=== PATIENT | female | born 1960 | race Caucasian/White ===

== ENCOUNTER → 2020-07-15 10:46 | Outpatient (CLI) | payer OTHER, SELFPAY ==
--- NOTE | ~2020-07-15 | XR_ITS ---
XR foot RT 2V DATE: 07/15/2020 11:13 INDICATION: Right foot pain TECHNIQUE: AP and lateral views COMPARISON: None FINDINGS: Mild plantar calcaneal enthesopathy. Osteophytosis at the tibiotalar joint. Severe osteoarthritic is at the first metatarsophalangeal join t. No fracture or dislocation, periosteal reaction or bone destruction. IMPRESSION: Osteophyte is at the tibiotalar and particularly first metatarsophalangeal joints Mild plantar calcaneal enthesopathy Reviewed, dictated and finalized at location B. IMPRESSION: Osteophyte is at the tibiotalar and particularly first metatarsopha langeal joints Mild plantar calcaneal enthesopathy
--- NOTE | ~2020-07-15 | XR_ITS ---
XR ankle RT 2V DATE: 07/15/2020 11:13 INDICATION: Right ankle and foot pain TECHNIQUE: AP and lateral views COMPARISON: None FINDINGS: There is minimal plantar calcaneal enthesopathy. No fracture or dislocation of the ankle or disruption of the ankle mortise is detected. There is teresa drocalcinosis and osteoarthritis at the tibiotalar joint. No periosteal reaction or bone destruction. IMPRESSION: Slight plantar calcaneal enthesopathy Chondrocalcinosis and osteoarthritis at the tibiotalar joint Reviewed, dictated and finalized at location B.
== END ==
DX: M77.31 Calcaneal spur, right foot (principal)
CPT/HCPCS: 73600; 73620

== ENCOUNTER → 2020-09-10 11:13 | Outpatient (CLI) | payer OTHER, SELFPAY ==
--- NOTE | ~2020-09-10 | MR_ITS ---
EXAMINATION: MR ankle RT wo con DATE: 09/10/2020 12:21 INDICATION: Right ankle pain. TECHNIQUE: Magnetic resonance imaging (MRI) of the right ankle was performed without intravenous cont rast. Sequences included sagittal PD-weighted FS FSE, sagittal PD-weighted FSE, coronal PD-weighted F S FSE, coronal PD-weighted FSE, axial PD-weighted FS FSE, and axial PD-weighted FSE. COMPARISON: Right ankle radiographs 07/15/2020 FINDINGS: Medial ankle ligaments: There are chronic partial tears of the deep and superficial components of the deltoid ligament. Lateral ankle ligaments: There are changes of prior sprains of anterior talofibular ligament, calcaneofibular ligament, and an terior tibiofibular ligament characterized by thickening and increased signal intensity. There are ch anges of prior sprains of posterior talofibular ligament and posterior tibiofibular ligament with dis organized fibers. Tendons: There is a longitudinal split tear of peroneus brevis tendon. The anterior ankle tendons are normal. There is mild tenosynovitis of posterior tibial tendon and flexor hallucis longus. There are loose radha dies in the flexor hallucis longus tendon sheath. There is mild Achilles tendinopathy. Plantar fascia: Normal. Bones/other: There is severe tibiotalar joint osteoarthritis. There is mild osteoarthritis of some of the midfoot joints and subtalar joint. Fluid: There are small effusions of the ankle joint, subtalar joint, and talonavicular joint. IMPRESSION: 1. 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 2. Longitudinal split tear of peroneus brevis tendon. 3. Mild tenosynovitis of flexor hallucis longus with loose bodies in the tendon sheath. 4. Mild posterior tibial tenosynovitis. 5. Changes of prior medial and lateral ankle sprains. Reviewed, dictated and finalized at location A. [facility]
== END ==
DX: M25.571 Pain in right ankle and joints of right foot (principal); S93.421A Sprain of deltoid ligament of right ankle, initial encounter; S96.811A Strain of other specified muscles and tendons at ankle and foot level, right foot, initial encounter; M19.071 Primary osteoarthritis, right ankle and foot; M24.071 Loose body in right ankle
CPT/HCPCS: 73721

== ENCOUNTER 2025-04-14 08:35 | Emergency (ER) | payer MEDICARE, SELFPAY ==
--- NOTE | ~2025-04-14 | XR_ITS ---
EXAMINATION: XR hand LT min 3V, XR wrist LT min 3V DATE: 04/14/2025 09:16 INDICATION: Left hand and wrist injury with medial sided pain post fall TECHNIQUE: 1. Posteroanterior, ulnar deviation, oblique, and lateral views of the left wrist were obtained. 2. Dorsal palmar, oblique and lateral views of the left hand were obtained. COMPARISON: None. FINDINGS: Alignment of the hand and wrist is normal. Lucencies at the distal pole and waist of the scaphoid lik tai related to degenerative subchondral cystic change. There is a cortical discontinuity along the ra dial side of the distal articular surface of the scaphoid with appearance suggesting a small minimall y displaced fracture at the radial aspect of the distal pole of the scaphoid. No evident extension of the fracture across the waist. No other lesions suspicious for fracture identified. Polyarticular os teoarthritis, moderate severity at the second-fifth proximal interphalangeal joints and the third met acarpophalangeal joint and mild at the majority the joints at the wrist and carpus and many of the re maining metacarpophalangeal and interphalangeal joints. Mild soft tissue swelling about the hand most prominent at the carpus. IMPRESSION: 1. Small minimally displaced intra-articular fracture involving small portion of the radial side of t he distal pole of the scaphoid. 2. Mild to moderate polyarticular osteoarthritis at the left hand and wrist. Reviewed, dictated and finalized at location B. IMPRESSION: 1. Small minimally displaced intra-articular fracture involving small portion o f the radial side of the distal pole of the scaphoid. 2. Mild to moderate polyarticular osteoarthritis at the left hand and wrist.
[2025-04-14 08:55] VITALS: BP 125/81; PULSE 68; RESP 16; TEMP 37.1; O2SAT 100
--- NOTE | 2025-04-14 09:18 | ED_ITS ---
HPI - Extremity Injury (Upper) General Chief Complaint: Extremity Injury, Upper Stated Complaint: lt hand injury/fall Time Seen by Provider: 04/14/25 09:46 Source: patient and RN notes reviewed Mode of arrival: ambulatory Limitations: no limitations History of Present Illness HPI narrative: 64-year-old female presents with concern for left wrist and hand pain. Reports last night she fell while she was walking up a hill. She reports she landed on her wrist and hand. She reports ulnar pain. She reports pain at rest and worsening pain with rotation and flexion. She has used ice, wrapping. She takes Celebrex. She denies decreased sensation. MD complaint: injury to: left, wrist and hand Related Data Home Medications ?Medication ?Instructions ?Recorded ?Confirmed ?Last Taken ?Type amlodipine 10 mg tablet mg 04/14/25 Unknown History methotrexate sodium 2.5 mg tablet mg 04/14/25 Unknown History prednisone 1 mg tablet mg 04/14/25 Unknown History prednisone 5 mg tablet mg 04/14/25 Unknown History sertraline 50 mg tablet mg 04/14/25 Unknown History Allergies Allergy/AdvReac Type Severity Reaction Status Date / Time NKDA Allergy Unknown Rash Uncoded 04/14/25 08:52 Review of Systems Review of Systems: CONSTITUTIONAL: Denies malaise, chills, sweats, or fever. SKIN: Denies rash or itching, open skin, laceration, abrasion, redness, warmth MUSCULOSKELETAL: Reports left hand and wrist pain and swelling NEUROLOGIC: Denies numbness, weakness All systems reviewed & are unremarkable except as noted in HPI and below PMFSH Comments At time of signature, agree with nursing past medical, surgical, social and family history. There is no relevant family history pertinent to the presenting complaint Exam Narrative: GENERAL: Well-appearing, well-nourished, and in no acute distress. HEAD: Normocephalic, atraumatic. EYES: PERRLA, conjunctivae clear NECK: Supple. CHEST: Speaks in full sentences. No respiratory distress. HEART: Regular rate and rhythm. Normal and equal peripheral pulses. EXTREMITIES: Left hand, wrist, digits have grossly normal strength and sensation, grossly normal range of motion. Milder ulnar edema without erythema, edema or ecchymosis. 4/5 strength with digit flexion and extension. Normal sensation with sensitivity to light touch and pain. Ulnar tenderness. No open wounds, no skin tenting, no devitalized tissue or atrophy, no trophic changes, no obvious deformity, alignment normal, nearby joints and structures intact. Distal pulses palpable and equal bilaterally, skin warm, dry, pink. Capillary refill less than 3 seconds. SKIN: Warm, dry, no rash. NEURO: Alert and oriented x3. PSYCH: Normal mood and affect Course Course Emergency Course: Patient is aware of diagnosis, understands and agrees to treatment plan. Anticipatory guidance given. Patient agrees to follow-up as directed and is aware of reasons to seek care at the emergency department. Portions of this record may have been created with voice recognition software Level of Care: Express Care Visit Vital Signs Vital signs: Vital Signs Temperature 98.7 F 04/14/25 08:55 Pulse Rate 68 04/14/25 08:55 Respiratory Rate 16 04/14/25 08:55 Blood Pressure 125/81 04/14/25 08:55 Pulse Oximetry 100 04/14/25 08:55 Temperature 98.7 F 04/14/25 08:55 Pulse Rate 68 04/14/25 08:55 Respiratory Rate 16 04/14/25 08:55 Blood Pressure 125/81 04/14/25 08:55 Pulse Oximetry 100 04/14/25 08:55 Reviewed. MDM - Extremity Injury (Upper) MDM Narrative Medical decision making narrative: Patients injury and pain is consistent with musculoskeletal etiology. No signs of neurological or vascular compromise on exam. Compartments and tissues are soft without signs of compartment syndrome. Pain is felt appropriate for further evaluation on an outpatient basis. Differential Diagnosis Differential diagnosis: Likely sprain and strain of wrist and fracture of wrist Imaging Data My impression: Images reviewed, interpreted by radiologist, agree, see report. Radiologist's impression: EXAMINATION: XR hand LT min 3V, XR wrist LT min 3V DATE: 04/14/2025 09:16 INDICATION: Left hand and wrist injury with medial sided pain post fall TECHNIQUE: 1. Posteroanterior, ulnar deviation, oblique, and lateral views of the left wrist were obtained. 2. Dorsal palmar, oblique and lateral views of the left hand were obtained. COMPARISON: None. FINDINGS: Alignment of the hand and wrist is normal. Lucencies at the distal pole and waist of the scaphoid likely related to degenerative subchondral cystic change. There is a cortical discontinuity along the radial side of the distal articular surface of the scaphoid with appearance suggesting a small minimally displaced fracture at the radial aspect of the distal pole of the scaphoid. No evident extension of the fracture across the waist. No other lesions suspicious for fracture identified. Polyarticular osteoarthritis, moderate severity at the second-fifth proximal interphalangeal joints and the third metacarpophalangeal joint and mild at the majority the joints at the wrist and carpus and many of the remaining metacarpophalangeal and interphalangeal joints. Mild soft tissue swelling about the hand most prominent at the carpus. IMPRESSION: 1. Small minimally displaced intra-articular fracture involving small portion of the radial side of the distal pole of the scaphoid. 2. Mild to moderate polyarticular osteoarthritis at the left hand and wrist. Critical Care Time Critical Care Time Critical Care Time: No Discharge Plan Discharge Clinical Impression: Fracture of scaphoid bone of left wrist Patient Disposition: Home Condition: Stable Instructions: Scaphoid Fracture (ED) Additional Instructions: Please rest, ice and elevate the affected extremity. Please take Tylenol as needed for pain. Follow up with Orthopedic Surgery in 1-2 days for further evaluation - please call for an appointment. Keep cast clean, dry and on. Please use garbage bag while showering to keep cast dry. Use sling. Please go to ER immediately for increased pain, tingling/numbness, swelling, redness, and fever Patient Language: Polish Prescriptions: No Action prednisone 5 mg tablet methotrexate sodium 2.5 mg tablet prednisone 1 mg tablet amlodipine 10 mg tablet sertraline 50 mg tablet Follow-up/Referrals: Jairon Winter MD [Physician] - 2 Days (Scaphoid fracture) Stacey,Francisco Sherman MD [Primary Care Provider] - Time of Disposition: 10:07
== END 2025-04-14 10:37 | disposition home or self-care (01) ==
PROVIDERS: Emergency Provider Nurse Practitioner; PCP Internal Medicine
DX: S62.012A Displaced fracture of distal pole of navicular [scaphoid] bone of left wrist, initial encounter for closed fracture (principal); W19.XXXA Unspecified fall, initial encounter
CPT/HCPCS: 29125; 73110; 73130; 99204; A4565; G0463